=== PATIENT | female | born 1960 | race African-American/Black ===

== ENCOUNTER → 2019-02-10 | Outpatient (CLI) | payer SELFPAY ==
[2015-02-24 15:36] VITALS: BP 183/74
[~2019-02-10] MED LIST: LISI1TAB3 PO; METF500T16 PO
--- NOTE | 2019-02-10 18:03 | RAD ---
EXAM: Chest, 2 views. HISTORY: Short of breath. COMPARISON: None. FINDINGS: 2 views of the chest are obtained. There is lateral left upper lobe atelectasis or interstitial infiltrate. There is no consolidation, pleural effusion or pneumothorax. The heart is normal in size. IMPRESSION: Lateral left upper lobe atelectasis or interstitial infiltrate. Electronically signed by: Meghan Anthony MD (02/10/2019 6:00 PM) [facility]
== END | disposition home or self-care (01) ==
LOC: RAD 17:06
PROVIDERS: ATTEND Physician Assistant Surgical
DX: R06.02 Shortness of breath (principal)
CPT/HCPCS: 71046

== ENCOUNTER → 2019-04-10 | Outpatient (CLI) | payer BC ==
[2015-02-24 15:36] VITALS: BP 183/74
--- NOTE | 2019-04-10 17:19 | KCIC ---
MRI Cervical Spine Without Contrast History: Neck pain, pain into the spine, previous head injury, shoulder pain bilaterally Technique: Multiplanar, multi sequential noncontrast MR imaging was performed of the cervical spine. Comparison: None Findings: Cervical cord caliber is within normal limits without defined or expansile signal abnormality. There is mild levoscoliosis. Cervical vertebral body stature is overall maintained. There is straightening of the cervical spine. There is negligible posterior subluxation C6 relative to C7. There is moderate degenerative disc disease C6-7, to a somewhat lesser degree at C5-6 and C4-5, also minimally at C3-C4. There is no significant marrow edema. C2-C3: Spinal canal and neural foramina are adequate. C3-C4: There is disc osteophyte complex and bulge. Central canal is borderline about 10 mm. There is right uncovertebral degenerative change. Left neural foramen is adequate, moderate to severe narrowing of the right neural foramen. C4-C5: There is negligible bulge. Central canal is adequate about 11 mm. There is uncovertebral degenerative change. There is mild to moderate left and moderate to severe right neural foramina compromise. C5-C6: Left neural foramen is adequate. There is right uncovertebral degenerative change, contributes to moderate narrowing of the right neural foramen. There is negligible disc osteophyte complex, central canal adequate about 11 mm. C6-C7: There is minimal disc osteophyte complex and bulge. There is minimal buckling of the ligamentum flavum. Central canal is minimally narrowed to about 9 mm. There is uncovertebral degenerative change bilaterally. There is severe neural foramina compromise bilaterally. C7-T1: There is negligible bulge. Central canal is adequate about 11 mm. There is mild right uncovertebral degenerative change. There is probable minimal narrowing of the right neural foramen, left neural foramen likely adequate. Impression: 1. There is multilevel neural foramina compromise in part from uncovertebral degenerative change, more significant narrowing bilaterally at C6-7 and on the right at C4-C5 and C3-4. There is mild spinal stenosis C6-7. There is moderate degenerative disc disease and mild spondylosis greatest at C6-7, to a lesser degree at other levels. There is mild levoscoliosis. Electronically signed by: Keshav Croft MD (04/10/2019 5:16 PM) [facility]
== END | disposition home or self-care (01) ==
LOC: KCIC MRI 15:14
PROVIDERS: ATTEND Physician Assistant Surgical
DX: M47.812 Spondylosis without myelopathy or radiculopathy, cervical region (principal); M50.21 Other cervical disc displacement, high cervical region; M50.323 Other cervical disc degeneration at C6-C7 level; M48.02 Spinal stenosis, cervical region; M25.78 Osteophyte, vertebrae
CPT/HCPCS: 72141

== ENCOUNTER → 2019-08-26 | Outpatient (CLI) | payer BC ==
[2015-02-24 15:36] VITALS: BP 183/74
[~2019-08-26] MED LIST changes: +ALBU0.63 NEB; +FURO-69 PO; +HYDR-2763 PO; +LIDO700A21 TP; +LISI1TAB23 PO; -LISI1TAB3 PO; +MELO7.5T29 PO; +NAPR-683 PO
--- NOTE | 2019-08-26 17:11 | PAIN ---
DATE OF SERVICE: 08/26/2019 INITIAL CONSULTATION FOR PAIN CLINIC CHIEF COMPLAINT: Neck and bilateral shoulder and upper extremity pain. SECONDARY COMPLAINT: Low back and bilateral lower extremity pain, left greater than right. HISTORY OF PRESENT ILLNESS: This is a 59-year-old female who presents with history of pain in the low back, right and left legs, right and left arms, started about 4 years ago by her report. She had no pain prior to a box, which fell on her at a local store from a very high area on a shelf, hit her in the head. She has had pain in the neck and shoulders, upper back, mid back and low back ever since. The patient reports the pain is now constant in the base of the neck and shoulders, upper extremities, radiating bilaterally, worse on the left than the right, also worse in the left than the right in the lower extremities and low back, but her chief complaint is low back pain. The patient reports it is constant, sharp, stabbing, throbbing, shooting with numbness and radiating pain in the upper extremities and lower extremity tingling, intermittent in intensity, but always present, cramping, aching and cold sensation in the neck and the back as well. The patient reports it awakens her from sleep at least 3-4 times at night, affects her bowel and bladder control, but no incontinence and does make it difficult for her walking. She uses a cane at times to ambulate using in her right hand, but did not have with her today. The patient reports she has had physical therapy ever since the injury and most recently this year, which helps to a moderate extent and doing some core strengthening with her, which seemed to help, also doing exercises on her own. She does have a [employer] membership, which she has not used recently. The patient reports she has taken hydrocodone, lidocaine patches, meloxicam, none of which decreased the pain significantly. The patient rates her disability rating from 0-10, 10 being the worst, 10 with family and home responsibilities, recreation, social activity, sexual behavior, 9-10 with occupation, self-care and life support activities. The patient did have MRI scan of the cervical spine showing multilevel neural foraminal compromise from uncovertebral degenerative change, most significantly narrowing bilaterally at C6-C7 on the right and C4-C5 and C3-C4 with mild spinal stenosis at C6-C7. The patient also had plain film x-rays taken of the lumbar spine showing significant space narrowing at the L4-L5 and L5-S1 levels with mild disk space narrowing, extensive degenerative changes involving the facet joints of the lower lumbar spine with slight associated anterolisthesis at L4-L5 and L5-S1. The patient reports no loss of motor function, but significant fatigability in both the upper extremities as well as lower extremities with any activity, walking, standing, better with sitting or lying down, but again awakens her from sleep significantly and frequently. PAST MEDICAL HISTORY: Significant for type 2 diabetes, anemia, shortness of breath, hypertension, asthma, urinary frequency, arthritis, headaches. PREVIOUS SURGERY: Includes a ventral hernia repair. CURRENT MEDICATIONS: Include hydrocodone, naproxen, meloxicam, lidocaine patches, Lasix, albuterol inhaler, metformin, and lisinopril. ALLERGIES: The patient has no known drug allergies. FAMILY HISTORY: Significant for hypertension and cancer. SOCIAL HISTORY: The patient does not drink alcohol, does not smoke, does not use any illegal, illicit or recreational drugs. She is , lives with her spouse locally, has one child, living at home and lives in [place], [place]. The patient reports she is currently on disability and does have a lawsuit involved with her disability case. REVIEW OF SYSTEMS: The patient's review of systems is positive for those items mentioned in history of present illness. All systems reviewed and otherwise negative. It is complete, full and well documented on the patient's chart. PHYSICAL EXAMINATION: VITAL SIGNS: The patient's blood pressure 156/84, pulse is 69, respirations 18, temperature is 98.1 degrees Fahrenheit, height is 5 feet 5 inches, weight is 348 pounds. GENERAL: The patient is awake, alert, oriented, appropriate, very pleasant demeanor. HEENT: Shows normocephalic, atraumatic. Extraocular movements are intact and symmetrical. Oral cavity, mucous membranes moist and pink. Dentition is intact. NECK: Shows anterior throat supple without palpable lymphadenopathy noted. Swallow reflex symmetrical. CHEST: Shows normal on inspection. Breath sounds clear to auscultation bilaterally. HEART: Shows S1, S2 clear. No murmurs auscultated. ABDOMEN: Soft, nontender, nondistended. No palpable organomegaly is noted. No rebound or guarding demonstrated. BACK: Shows spine grossly in the midline. Slight exaggeration of thoracic kyphosis and minor flattening of lumbar lordotic curvature. Cervical lordotic curvature is intact as well. With palpation, cervical paraspinous muscle shows symmetrical, but tender diffusely throughout the upper, middle and lower distribution of the cervical paraspinous musculature as well as the superior and medial trapezius, both right and left. The patient shows very guarded rotational motion of cervical spine, which is performed past 45 degrees right and left, but very guarded and very slow secondary to pain and anticipated pain. The patient has good extension as well as forward flexion again quite guarded, but full rotation, but only minor pain reported and tightness reported in the base of the neck. The patient's low back shows lumbar paraspinous muscle symmetrical on inspection, with palpation shows some moderate tenderness diffusely throughout the upper, middle and lower distribution of paraspinous musculature, but only diffusely without radiation. The patient shows good rotational motion of the lumbar spine both laterally as well as extension and flexion with mild pain reported with all rotational directions 10 degrees right and left, 10 degrees extension and forward flexion at about 40 degrees, again tender with all without radiation. EXTREMITIES: The patient's upper extremities show deep tendon reflexes 2+ in the biceps, triceps tendons. Motor exam is strong with crop research scientist strength rated at 5/5 bilaterally crop research scientist, bicep and tricep flexion. Peripheral pulses are 2+ radial distribution. No peripheral edema is noted. Shoulder shrug is strong and intact without loss of strength on resistance, but with moderate pain reported more on the left than the right. This is true with abduction of the shoulder to 90 degrees without loss of strength, but with significant pain on resistance bilaterally. The patient's lower extremities show deep tendon reflexes 1+ in patellar and tendo calcaneus tendons and are symmetrical. Peripheral pulses are 1+ posterior tibial, 2+ radial. No peripheral edema is noted in the extremities, upper or lower. Motor exam of the lower extremities shows approximately 4 on a scale of 5, but symmetrical dorsiflexion, extension, quadriceps and hamstring flexion is 3 to 4 on a scale of 5, but symmetrical as well. Significant pain reported in the base of the lumbar spine and sacrum with lifting the leg off of the table. Straight leg raise noted to be positive for reproduction of radicular symptoms bilaterally at about 30 degrees, decreased with knee flexion, but not relieved completely. Nicolasa's and Travis's maneuvers are grossly negative bilaterally. The patient is able to stand, but has difficulty standing from a seated position, uses arms of her chair significantly to support herself when getting up and is unable to stand on her toes as she loses balance very quickly, is walking with a slight shuffling gait, does not appear to favor the right or left lower extremity to a significant amount and not using any assistive devices to ambulate today on her visit. SKIN: Shows warm and dry, good turgor. No edema. No sores, rashes or bruising. IMPRESSION: 1. This is a 59-year-old female with approximately 4-year history of pain in the base of the neck, upper extremities in a radicular fashion, mid back, low back and radicular pain, more on the left than the right, both the upper and lower extremities. 2. Obesity. 3. Type 2 diabetes. 4. Hypertension. 5. Arthritis. PLAN: Options were discussed with the patient including conservative medical management, physical therapies, interventional techniques and she was very adamant against interventional techniques at this time. She would like to continue with her physical therapy exercises. We discussed with her using a pool at the [facility]. She is a member and able to do some water aerobics, highly encouraged this as well as weight loss, which we discussed in some detail as well. Also, we will try Flector patch for the base of the neck and the low back at this time. She has some lidocaine patches, but is wishing some different potentially more effective therapy. Also, the patient will follow up with her chiropractic office for potential traction as well. If not significantly improved with these modalities, we did discuss potential lumbar epidural steroid injection and a cervical epidural steroid injection; however, she would like to wait and do more conservative therapies first. We will have her followup at this time on as needed basis. DINESH HUTTON MD DR: JENNIFER/zhen JOB#: [id number] / [id number] ecc ,
--- NOTE | 2019-09-18 16:07 | PAIN ---
DATE OF SERVICE: 09/18/2019 PROGRESS NOTE FOR PAIN CLINIC DIAGNOSES: 1. Lumbar radiculopathy with lumbar degenerative disk disease. 2. Cervical radiculopathy with cervical degenerative disk disease. HISTORY OF PRESENT ILLNESS: The patient is a 59-year-old female who returns for followup status post previous evaluation and the patient was doing physical therapy as well as water therapy at the [facility] on her own. The patient did have an MRI scan dated 09/02/2019 showing significant findings at L4-L5 with diffuse disk bulge eccentric to the left and slight extrusion of disk material centrally above the level of the disk space with severe left and [id number] right neural foraminal stenosis. The patient reports increasing pain. She did do some traction with her chiropractor, which she reports did help, but it took 4 or 5 treatments to make it any better and still wanted to decrease by about 20%. The patient reports the pain is a 10 on a scale of 10 at its worst over the past week, 8 on average, 8 at its least and is an 8 today. Low back and bilateral lower extremities, worse on the left, posterior gluteus, posterior thigh, lateral thigh, anterior thigh, medial thigh to the ankle and foot. The patient reports it is aching, sharp, dull, tight, shooting, tingling, stabbing, constant, becoming more radiating in the left leg and severe. PHYSICAL EXAMINATION: VITAL SIGNS: The patient's blood pressure is 131/76, pulse 87, respirations 16, temperature 97.8 degrees Fahrenheit, weight is 351 pounds. GENERAL: The patient is awake, alert, oriented, appropriate, very pleasant demeanor. HEENT: Shows normocephalic, atraumatic. Extraocular movements are intact and symmetrical. Oral cavity: Mucous membranes moist and pink. Dentition is intact. NECK: Shows anterior throat supple without palpable lymphadenopathy noted. Swallow reflex symmetrical. CHEST: Shows normal on inspection. Breath sounds are clear bilaterally. HEART: Shows S1, S2 clear. ABDOMEN: Obese, soft, nontender, nondistended. No palpable organomegaly is noted. No rebound or guarding demonstrated. BACK: Shows spine grossly in the midline. Normal-appearing thoracic kyphosis and flattening of lumbar lordotic curvature. Lumbar paraspinous muscle shows symmetrical on inspection, with palpation shows some moderate tenderness diffusely bilaterally, but only diffusely without radiation. The patient has good rotational motion of lumbar spine, both laterally as well as extension and flexion without difficulty. EXTREMITIES: Lower extremities show deep tendon reflexes at 1+ in the patellar and tendo calcaneus tendons. Motor exam is approximately 4 on a scale of 5, but symmetrical with dorsiflexion, extension, quadriceps and hamstring flexion, right and left. Peripheral pulses are 1+ posterior tibia. No peripheral edema is noted. Options were discussed with the patient. The patient's old chart was reviewed as her current medication updated today as well as review of systems updated today. We will proceed with a lumbar epidural steroid injection today with fluoroscopic guidance. Risks were again discussed including, but not limited to bleeding, infection, possibility of epidural hematoma and subsequent neurological compromise, dural puncture, headaches, spinal cord and/or nerve damage, side effects of steroid medication and poor results regarding pain control. The patient understands and wished to proceed. The patient will return to the clinic in approximately 2 weeks for followup. She was counseled on return appointment, activity level and side effects to be aware of. DIAGNOSES: Lumbar radiculopathy with lumbar degenerative disk disease. PROCEDURE: Lumbar epidural steroid injection, translaminar approach at L4-L5 level using C-arm fluoroscopic guidance under sterile prep and drape using local anesthetic. MEDICATION INJECTED: A total of 120 mg Depo-Medrol plus 10 mL of preservative-free normal saline and 2 mL of contrast. CONDITION AT DISCHARGE: Stable. The patient tolerated the procedure well, had no complications. DINESH HUTTON MD DR: JENNIFER/zhen JOB#: [id number] / [id number]
== END | disposition home or self-care (01) ==
LOC: PNCL 14:04
PROVIDERS: ATTEND Anesthesiology
DX: M54.5 Low back pain (principal); I10 Essential (primary) hypertension; E11.9 Type 2 diabetes mellitus without complications; M19.90 Unspecified osteoarthritis, unspecified site; E66.9 Obesity, unspecified; M25.512 Pain in left shoulder; M25.511 Pain in right shoulder
CPT/HCPCS: G0463

== ENCOUNTER → 2019-09-02 | Outpatient (CLI) | payer BC ==
[2015-02-24 15:36] VITALS: BP 183/74
--- NOTE | 2019-09-02 16:51 | KCIC ---
STUDY: MRI of the lumbar spine without contrast INDICATION: Degenerative disc disease. Loss of bladder control. Coccydynia. Chronic low back pain and bilateral extremity pain. No provided history of surgery. COMPARISON: No recent lumbar spine MRI is available for review. TECHNIQUE: Multiplanar MR imaging of the lumbar spine performed without the use of intravenous contrast. FINDINGS: Transitional lumbosacral anatomy is noted. The S1 vertebral body is partially lumbarized and there is a mostly well-formed disc space at S1-S2. The conus medullaris appears to terminate at approximately the upper L2 level. At the T11-T12 level, degenerative changes result in contact and effacement of both the ventral and dorsal aspect of the cord and on the sagittal T2 sequence there appears to be cord signal elevation at this level though this is less well characterized on the sagittal STIR sequence. This region is not imaged on the axial sequences. Exaggeration of lumbar lordosis. Grade 1 anterolisthesis of L4 on L5 and trace anterolisthesis of L3 on L4. Mild/moderate disc space narrowing at L5-S1. Disc desiccation without significant disc space narrowing at L4-L5. Mild disc space narrowing at T11-T12. No acute fracture or aggressive marrow signal abnormality. Symmetric paraspinous musculature fatty infiltration. Partially visualized fatty infiltration of the gluteus maximums. T11-T12: Only evaluated on the sagittal sequences. Diffuse disc bulge appearing eccentric to the right in addition to facet degeneration and a probable component of ligamentum flavum hypertrophy. There is contact and deformity upon both the ventral and dorsal aspect of the cord and the canal appears severely narrowed. As above, possible cord signal elevation at this level. At least moderate right neural foraminal stenosis and more mild neural foraminal encroachment on the left. T12-L1: Patent central canal and neural foramina. L1-L2: Patent central canal and neural foramina. L2-L3: Patent central canal and neural foramina. L3-L4: Grade 1 anterolisthesis with disc uncovering. Mild disc bulge that is eccentric to the left. Advanced facet degeneration as well as ligamentum flavum hypertrophy. Mild to moderate central canal stenosis. Mild to moderate left and mild right neural foraminal stenosis. L4-L5: Grade 1 anterolisthesis with disc uncovering. Diffuse disc bulge eccentric to the left and there is slight extrusion of disc material centrally above the level of the disc space. Advanced facet degeneration with a left-sided facet effusion. Ligamentum flavum hypertrophy. The thecal sac is constricted and the mid sagittal dimension of the canal is mildly narrowed. Left more so than right lateral recess stenosis. Severe left and moderate to severe right neural foraminal stenosis. L5-S1: Advanced facet degeneration. Mild disc bulge as well as endplate osteophytic ridging. The central canal is patent. Moderate bilateral neural foraminal stenosis. IMPRESSION: 1. Please note the presence of transitional lumbosacral anatomy with lumbarization of the S1 vertebral body and a mostly well-formed disc space at S1-S2. 2. Multifactorial degenerative changes which are only partially evaluated at the T11-T12 level. Disc bulge that appears eccentric to the right as well as facet degeneration and presumed ligamentum flavum hypertrophy with contact and deformity of both the ventral and dorsal aspect of the cord and severe central canal stenosis. On the sagittal T2 sequence, potential localized myelomalacia at this level though this could be artifactual given absent visualization of this signal on the sagittal STIR sequence. At least moderate right and mild left neural foraminal stenosis. 3. On a multifactorial basis, mild to moderate central canal stenosis at L3-L4 and mild central canal stenosis at L4-L5. 4. Severe left and moderate to severe right neural foraminal stenosis at L4-L5 as well as left more so than right lateral recess stenosis at this level. Moderate bilateral neural foraminal stenosis at L5-S1. Electronically signed by: CALIN HEATH MD (09/02/2019 4:48 PM) [facility]
== END | disposition home or self-care (01) ==
LOC: KCIC MRI 15:37
PROVIDERS: ATTEND Family Medicine
DX: M43.16 Spondylolisthesis, lumbar region (principal); M47.815 Spondylosis without myelopathy or radiculopathy, thoracolumbar region; M48.07 Spinal stenosis, lumbosacral region; M51.26 Other intervertebral disc displacement, lumbar region; M89.38 Hypertrophy of bone, other site; G89.29 Other chronic pain
CPT/HCPCS: 72148

== ENCOUNTER → 2019-09-14 | Outpatient (CLI) | payer BC ==
[2015-02-24 15:36] VITALS: BP 183/74
--- NOTE | 2019-09-14 19:19 | KCIC ---
Bilateral digital screening mammograms with 3-D tomosynthesis: Reason for examination: Routine screening. Comparison is made to previous study dated 02/23/2015. Bilateral mammograms in CC and oblique projections were obtained with 2-D imaging and 3-D tomosynthesis imaging on a [employer] unit and reviewed on the workstation. Interpretation was made with the benefit of CAD. The skin and nipples show no abnormalities. No abnormal axillary lymph nodes are seen. The breast parenchyma is predominantly fatty. (Breast density: Category A.) There are no dominant masses, suspicious calcifications or architectural distortion. Impression: No evidence of malignancy. Recommend routine screening. BI-RAD Category 1: Negative. "Our facility is accredited by the [employer] Mammography Program." This patient's information has been entered into a reminder system for the patient to be notified with the results of her examination and a target date for the next mammogram. Electronically signed by: Silvia Burgess MD (09/14/2019 7:16 PM) [id number]
== END | disposition home or self-care (01) ==
LOC: KCIC MAMMO 16:08
PROVIDERS: ATTEND Family Medicine
DX: Z12.31 Encounter for screening mammogram for malignant neoplasm of breast (principal)
CPT/HCPCS: 77063; 77067

== ENCOUNTER → 2019-09-18 | Outpatient (CLI) | payer BC ==
[2015-02-24 15:36] VITALS: BP 183/74
[~2019-09-18] MED LIST changes: +IOHEXOL 180 MG/ML 10 ML VIAL. ONE; +methylPREDNISolone ACETATE 40 MG/ML VIAL. ONE; +methylPREDNISolone ACETATE 80 MG/ML VIAL. ONE
== END ==
LOC: PNCL 11:11
PROVIDERS: ATTEND Anesthesiology
DX: M51.16 Intervertebral disc disorders with radiculopathy, lumbar region (principal); M50.10 Cervical disc disorder with radiculopathy, unspecified cervical region
CPT/HCPCS: 62323; J1030; J1040; Q9965

== ENCOUNTER → 2019-10-02 | Outpatient (CLI) | payer BC ==
[2015-02-24 15:36] VITALS: BP 183/74
--- NOTE | 2019-10-02 13:33 | PAIN ---
DATE OF SERVICE: 10/02/2019 PROGRESS NOTE FOR PAIN CLINIC DIAGNOSES: 1. Lumbar radiculopathy with lumbar degenerative disk disease. 2. Cervical radiculopathy with cervical degenerative disk disease. HISTORY OF PRESENT ILLNESS: The patient is a 59-year-old female who returns for followup status post lumbar epidural steroid injection x 1. The patient reports about 50% improvement overall from her baseline. The patient reports she is very happy with her progress thus far. She has been increasing activities around the house, walking greater distances, increased her activity in general and is very pleased. She is sleeping better at night. The patient reports it still awakens her from sleep, but only about every 5 hours, and not like it was more frequently. The patient reports her pain on the last week at its worst is a 6-7 on a scale of 10, average about 6-7 and a low as a 5, and is a 6 today. The patient reports it is unbearable at times, tingling, aching, sharp, tight in the low back itself and into the left greater than right lower extremity. The patient reports no new motor or sensory deficits, no new bowel or bladder incontinence or other complaints. PHYSICAL EXAMINATION: VITAL SIGNS: The patient's blood pressure is 134/78, pulse 84, respirations 16, temperature 98.0 degrees Fahrenheit, height is 5 feet 6 inches, weight is 345 pounds. GENERAL: The patient is awake, alert, oriented, appropriate, very pleasant demeanor. HEENT: Head shows normocephalic, atraumatic. Extraocular movements are intact and symmetrical. Oral cavity shows mucous membranes moist and pink. Dentition is intact. NECK: Shows anterior throat supple without palpable lymphadenopathy noted. Swallow reflex symmetrical. CHEST: Shows normal on inspection. Breath sounds clear bilaterally. HEART: Shows S1, S2 clear. ABDOMEN: Obese, soft, nontender, nondistended. BACK: Shows spine grossly in the midline, slight exaggerated thoracic kyphosis, some minor flattening of lumbar lordotic curvature. Lumbar paraspinous muscle shows symmetrical on inspection, on palpation shows some moderate tenderness diffusely bilaterally going diffusely without significant radiation. The patient has good rotational motion of lumbar spine, both laterally as well as extension and flexion without significant increase in pain. EXTREMITIES: Lower extremities show deep tendon reflexes 1+ in the patellar and tendo-calcaneus tendons. Motor exam is approximately 4 on a scale of 5, but symmetrical with dorsiflexion, extension, quadriceps and hamstring flexion. Peripheral pulses are 1+ bilaterally. No peripheral edema bilaterally. PLAN: Options were discussed with the patient. The patient's old chart was reviewed as her current medication regimen updated. Current review of systems updated today as well. We will proceed with a second lumbar epidural steroid injection today with fluoroscopic guidance. Risks were again discussed including, but not limited to bleeding, infection, possibility of epidural hematoma, subsequent neurological compromise, dural puncture, headaches, spinal cord and/or nerve damage, side effects of steroid medication and poor results regarding pain control. The patient understands and wished to proceed. The patient will return to clinic in approximately 2 weeks for followup, was counseled on return appointment, activity level and side effects to be aware of. DIAGNOSES: Lumbar radiculopathy with lumbar degenerative disk disease. PROCEDURE: Lumbar epidural steroid injection, translaminar approach L4-L5 level using C-arm fluoroscopic guidance under sterile prep and drape using local anesthetic. MEDICATION INJECTED: A total of 120 mg Depo-Medrol plus 10 mL of preservative-free normal saline and 2 mL of contrast. CONDITION AT DISCHARGE: Stable. The patient tolerated procedure well, had no complications. DNIESH HUTTON MD DR: JENNIFER/zhen JOB#: [id number] / [id number]
== END ==
LOC: PNCL 11:26
PROVIDERS: ATTEND Anesthesiology
DX: M51.16 Intervertebral disc disorders with radiculopathy, lumbar region (principal); M50.10 Cervical disc disorder with radiculopathy, unspecified cervical region
CPT/HCPCS: 62323; J1030; J1040; Q9965

== ENCOUNTER → 2019-11-24 | Outpatient (CLI) | payer BC ==
[2015-02-24 15:36] VITALS: BP 183/74
[~2019-11-24] MED LIST changes: -IOHEXOL 180 MG/ML 10 ML VIAL. ONE; -methylPREDNISolone ACETATE 40 MG/ML VIAL. ONE; -methylPREDNISolone ACETATE 80 MG/ML VIAL. ONE
--- NOTE | 2019-11-24 16:09 | KCIC ---
EXAM: Lumbar spine, flexion and extension. HISTORY: Pain. COMPARISON: 03/23/2019 FINDINGS: Lateral neutral, flexion and extension views of the lumbar spine are obtained. There is a transitional lumbosacral segment. This considered L6 for this dictation. Based on this numbering system, there is grade 1 anterolisthesis of and L3 on L4 and L4 on L5. This is not change between flexion and extension. There is disc space narrowing at L4-L5 and L5-L6. There is multilevel facet arthropathy. IMPRESSION: 1. 6 nonrib-bearing vertebral segments. The last segment is considered L6 for this dictation. 2. Degenerative change predominantly at L4 through L6 and grade 1 anterolisthesis of L4 on L5 and L5 on L6. This does not significantly change between flexion and extension. Electronically signed by: Meghan Anthony MD (11/24/2019 4:06 PM) [facility] [place]
== END | disposition home or self-care (01) ==
LOC: KCIC 14:50
PROVIDERS: ATTEND Neurological Surgery
DX: M47.816 Spondylosis without myelopathy or radiculopathy, lumbar region (principal); M43.16 Spondylolisthesis, lumbar region; M12.88 Other specific arthropathies, not elsewhere classified, other specified site
CPT/HCPCS: 72100

== ENCOUNTER → 2019-12-02 | Outpatient (CLI) | payer BC ==
[2015-02-24 15:36] VITALS: BP 183/74
[~2019-12-02] MED LIST changes: +IOHEXOL 240 MG/ML 50ML VIAL. PO ONE; +IOHEXOL 300 MG/ML 100ML VIAL. IV ONE; +diphenhydrAMINE HCL 25 MG CAPSULE PO ONE
--- NOTE | 2019-12-02 15:48 | KCIC ---
CT ABD PELV W/ORAL IV CONTRAST Indication: Abdominal and pelvic pain Technique: Postcontrast CT imaging was performed of the abdomen and pelvis, multiplanar reconstruction images submitted. Oral contrast was also given. One or more of the following individualized dose reduction techniques were utilized for this examination: 1. Automated exposure control 2. Adjustment of the mA and/or kV according to patient size 3. Use of iterative reconstruction technique. Comparison: None Findings: After exam conclusion, patient reported skin itching as well as scratchy sensation in throat. Patient was given 50 mg Benadryl orally although subsequent vomiting. Patient reported symptoms had resolved, patient discharged to home. Mild linear density of the visualized lungs bilaterally is probably component of atelectasis, lungs not fully evaluated. Both kidneys enhance, no significant hydronephrosis. There is no adrenal nodularity. No focal abnormality is identified of the liver, spleen, or pancreas. Normal appendix is visualized. Bowel is not significantly dilated. There is no free fluid or free air. No significant inflammatory type change is identified about the bowel. There is apparently transitional anatomy of the lumbar spine. There is grade 1 anterior spondylolisthesis at what is considered L4-5, also vacuum disc disease at this level. There is severe narrowing of the L5-S1 intervertebral disc space. There is multilevel lumbar facet degenerative change contributing to multilevel variable lateral recess stenosis. There is likely more significant spinal stenosis at L4-5. There is multilevel lumbar neural foramina compromise, more significant narrowing right greater than left at L4-5 and left greater than right at L5-S1. There is osteoarthritic change of the hips bilaterally. There is also multilevel thoracic degenerative disc disease and facet degenerative change, variable neural foramina compromise. There is also likely degree of spinal stenosis greatest at T9-T10 and right lateral recess stenosis at T11-12. IMPRESSION: 1. Patient exhibited symptoms of allergy after injection of contrast, treated with oral Benadryl. Patient should be premedicated prior to future contemplation of intravenous contrast administration. 2. There is no significant inflammatory change, no CT evidence of acute appendicitis. 3. There is multilevel lumbar degenerative disc disease and facet degenerative change. There is multilevel lateral recess stenosis and also likely more significant spinal stenosis at L4-5. There is lumbar neural foramina compromise greatest at L4-5 and L5-S1. There is also thoracic degenerative disc disease and facet degenerative change as well as spinal stenosis. Electronically signed by: Keshav Croft MD (12/02/2019 3:45 PM) [facility]
== END ==
LOC: KCIC CT 12:27
PROVIDERS: ATTEND Internal Medicine Gastroenterology
DX: M51.35 Other intervertebral disc degeneration, thoracolumbar region (principal); J98.4 Other disorders of lung; M43.16 Spondylolisthesis, lumbar region; M16.0 Bilateral primary osteoarthritis of hip; M48.05 Spinal stenosis, thoracolumbar region
CPT/HCPCS: 74177; 82565; Q9966; Q9967; Q0163

== ENCOUNTER → 2019-12-14 | Outpatient (CLI) | payer BC ==
[2015-02-24 15:36] VITALS: BP 183/74
[~2019-12-14] MED LIST changes: +IOHEXOL 180 MG/ML 10 ML VIAL. ONE; -IOHEXOL 240 MG/ML 50ML VIAL. PO ONE; -IOHEXOL 300 MG/ML 100ML VIAL. IV ONE; -diphenhydrAMINE HCL 25 MG CAPSULE PO ONE; +methylPREDNISolone ACETATE 40 MG/ML VIAL. ONE; +methylPREDNISolone ACETATE 80 MG/ML VIAL. ONE
--- NOTE | 2019-12-14 15:34 | PAIN ---
DATE OF SERVICE: 12/14/2019 PROGRESS NOTE FOR PAIN CLINIC DIAGNOSES: 1. Lumbar radiculopathy with lumbar degenerative disk disease. 2. Cervical radiculopathy with cervical degenerative disk disease. HISTORY OF PRESENT ILLNESS: The patient is a 59-year-old female who returns for followup status post lumbar epidural steroid injection x 2, most recently seen 10/02/2019. The patient did very well with about 80% improvement in her low back and left lower extremity pain. The patient reports pain is returning now over the past few weeks, worse in the low back bilaterally in the posterior gluteus, posterior thighs, lateral thighs as well, but mostly in the posterior aspect. The patient reports it is worse with walking, standing, changing positions, better with sitting or lying down, awakens her from sleep about every 6 hours, but not every night. The patient reports she was doing much better initially distance walking, doing work activities, household activities with greater ease and comfort. The patient reports now the pain is returning, rates her pain over the past week as an 8 on a scale of 10 at its worst, 5 at its least and 7 on average and is a 7 today. The patient reports it is sharp and shooting, stabbing, radiating, becoming more unbearable and more severe with activity. The patient reports no new motor or sensory deficits, no new bowel or bladder incontinence or other complaints. PHYSICAL EXAMINATION: VITAL SIGNS: The patient's blood pressure 133/75, pulse 98, respirations 18, temperature 97.9 degrees Fahrenheit, height is 5 feet 6 inches, weight is 356 pounds. GENERAL: The patient is awake, alert, oriented, appropriate, very pleasant demeanor. HEENT: Head shows normocephalic, atraumatic. Extraocular movements are intact and symmetrical. Oral cavity: Mucous membranes are moist and pink. Dentition is intact. NECK: Shows anterior throat supple without palpable lymphadenopathy noted. Swallow reflex symmetrical. CHEST: Shows normal on inspection. Breath sounds are clear bilaterally. HEART: Shows S1, S2 clear. No murmurs auscultated. ABDOMEN: Soft, nontender, nondistended. No palpable organomegaly is noted. No rebound or guarding demonstrated. BACK: Shows spine grossly in the midline. Normal-appearing thoracic kyphosis, minor flattening of lumbar lordotic curvature. Lumbar paraspinous muscle shows symmetrical on inspection, on palpation shows some moderate tenderness diffusely bilaterally but only diffusely without significant radiation. EXTREMITIES: The patient's lower extremities show deep tendon reflexes at 1+ in the patellar and tendo calcaneus tendons. Motor exam is strong with approximately 4 on a scale of 5, but symmetrical and equal in dorsiflexion, extension, quadriceps and hamstring flexion. Peripheral pulses are 1+ posterior tibia. No peripheral edema is noted bilaterally. Options were discussed with the patient. The patient's old chart was reviewed as her current medication regimen updated. Current review of systems updated today as well. We will proceed with a third in the series of lumbar epidural steroid injection today with fluoroscopic guidance. Risks were again discussed including, but not limited to bleeding, infection, possibility of epidural hematoma, subsequent neurological compromise, dural puncture, headaches, spinal cord and/or nerve damage, side effects of steroid medication and poor results regarding pain control. The patient understands and wished to proceed. The patient will return to the clinic in approximately 2 weeks for followup. She was counseled on return appointment, activity level and side effects to be aware of. DIAGNOSIS: Lumbar radiculopathy with lumbar degenerative disk disease. PROCEDURE: Lumbar epidural steroid injection, translaminar approach at L4-L5 level using C-arm fluoroscopic guidance under sterile prep and drape using local anesthetic. MEDICATION INJECTED: A total of 120 mg Depo-Medrol plus 10 mL of preservative-free normal saline and 2 mL of contrast. CONDITION AT DISCHARGE: Stable. The patient tolerated procedure well, had no complications. DINESH HUTTON MD DR: JENNIFER/zhen JOB#: [id number] / [id number]
== END ==
LOC: PNCL 13:00
PROVIDERS: ATTEND Anesthesiology
DX: M51.16 Intervertebral disc disorders with radiculopathy, lumbar region (principal); M50.10 Cervical disc disorder with radiculopathy, unspecified cervical region
CPT/HCPCS: 62323; J1030; J1040; Q9965

== ENCOUNTER → 2019-12-22 | Outpatient (CLI) | payer BC ==
[2015-02-24 15:36] VITALS: BP 183/74
[~2019-12-22] MED LIST changes: -IOHEXOL 180 MG/ML 10 ML VIAL. ONE; -methylPREDNISolone ACETATE 40 MG/ML VIAL. ONE; -methylPREDNISolone ACETATE 80 MG/ML VIAL. ONE
--- NOTE | 2019-12-22 14:36 | KCIC ---
MRI thoracic spine without contrast HISTORY: Thoracic stenosis. FINDINGS: Sagittal localizer sequence demonstrates cervical disc bulges with probable spinal canal stenoses at least from C3-C4 through C6-C7. There is gradual thoracolumbar scoliosis. Thoracic vertebral body height and alignment intact. No thoracic vertebral bone marrow edema. Thoracic disc desiccation and disc height loss typical of degeneration. No signal abnormality or syrinx of the thoracic spinal cord. Paraspinal tissues are unremarkable. There are mild scattered shallow thoracic disc bulges buckling the ventral dural sac throughout the thoracic spine without significant spinal canal stenosis evident. Multilevel facet spurring contributing to foraminal stenoses to a [id number] degree. At T11-T12 there is a moderate disc bulge, with bulky facet spurs contributing to severe spinal canal, severe right lateral recess stenosis and moderate left lateral recess stenosis, midline dural sac diameter is 5 mm, there may be light impingement of the lower thoracic spinal cord, there is probable impingement of the right T12 nerve at the lateral recess. There is indistinct signal across the thoracic spinal cord at this level of impingement although this is similar to other levels throughout the thoracic spine and is likely due to Julio artifact. IMPRESSION: Thoracic spine degenerative disc disease and facet arthritis. This is most notable at T11-T12 with a moderate disc bulge and bulky facet spurring contributing to severe spinal canal and right lateral recess stenosis as described above. Electronically signed by: Silvino Cornelius MD (12/22/2019 2:32 PM) [id number]
== END | disposition home or self-care (01) ==
LOC: KCIC MRI 13:10
PROVIDERS: ATTEND Neurological Surgery
DX: M51.34 Other intervertebral disc degeneration, thoracic region (principal); M41.85 Other forms of scoliosis, thoracolumbar region; M46.84 Other specified inflammatory spondylopathies, thoracic region; M48.04 Spinal stenosis, thoracic region
CPT/HCPCS: 72146

== ENCOUNTER → 2020-02-19 | Outpatient (CLI) | payer BC ==
[2015-02-24 15:36] VITALS: BP 183/74
--- NOTE | 2020-02-19 09:56 | PAIN ---
DATE OF SERVICE: 02/19/2020 PROGRESS NOTE FOR PAIN CLINIC DIAGNOSES: 1. Lumbar radiculopathy with lumbar degenerative disk disease. 2. Cervical radiculopathy with cervical degenerative disk disease. HISTORY OF PRESENT ILLNESS: The patient is a 59-year-old female who returns for followup status post lumbar epidural steroid injections x 3, most recently on 12/14/2019. Patient did very well with about 65% improvement in the low back, bilateral lower extremity pain. The patient reports her left leg is still more significantly painful than the right, worse with walking, standing, changing positions, better with sitting or lying down, but it has been awakening her from sleep over the past week or so. The patient reports before that she was doing much better with increased walking distances, able to do household activities with greater ease and comfort, traveling with greater ease and sleeping better, but again this is beginning to return in the low back, bilateral lower extremities, posterior gluteus, posterolateral thigh, lateral anterior thigh on the left, especially in the medial thigh, and some in the groin as well on the left side, also on the right side, but not as severe. The patient reports it is aching, sharp, shooting, tingling, stabbing pain, radiating, becoming constant, severe at times with activity. The patient rates her pain as a 9 on a scale of 10 at its worst over the past week, 7 on average, 7 at its least and is a 7 today. PHYSICAL EXAMINATION: VITAL SIGNS: The patient's blood pressure is 154/92, pulse 67, respirations 20, temperature 98.7 degrees Fahrenheit, weight is 356 pounds. GENERAL: The patient is awake, alert, oriented, appropriate, very pleasant demeanor. HEENT: Exam shows normocephalic, atraumatic. Extraocular movements are intact and symmetrical. Oral cavity shows mucous membranes moist and pink. Dentition is intact. NECK: Shows anterior throat supple without palpable lymphadenopathy noted. Swallow reflex symmetrical. CHEST: Shows normal on inspection. Breath sounds are clear bilaterally. HEART: Shows S1, S2 clear. No murmurs auscultated. ABDOMEN: Soft, nontender, nondistended. No palpable organomegaly is noted. No rebound or guarding demonstrated. BACK: Shows spine grossly in the midline. Normal appearing thoracic kyphosis and minor flattening of lumbar lordotic curvature. Lumbar paraspinous muscle shows symmetrical on inspection, on palpation shows some moderate tenderness diffusely bilaterally with palpation in the low lumbar distribution only, but without specific radiation. The patient has good rotational motion both laterally as well as extension and flexion without significant increase in pain just mildly increased. EXTREMITIES: The patient's lower extremities show deep tendon reflexes 1+ in the patellar and tendo calcaneus tendons. Motor exam is approximately 4 on a scale of 5, but equal and symmetrical with dorsiflexion, extension, quadriceps and hamstring flexion and symmetrical. Peripheral pulses are 1+ posterior tibia. No peripheral edema bilaterally. Options were discussed with the patient. The patient's old chart was reviewed as her current medication regimen updated. Current review of systems updated today as well and we will proceed with scheduling a followup for lumbar epidural steroid injection. It has not been quite 6 months and by her insurance restrictions it must be 6 months from the first injection prior to eligibility for any additional. We will try Medrol Dosepak in the meantime. The patient was given instruction as well as side effects to be aware of with the medication and will follow up in approximately 3 weeks and we will plan on lumbar epidural steroid injection at that time. DINESH HUTTON MD DR: JENNIFER/zhen JOB#: [id number] / [id number]
== END | disposition home or self-care (01) ==
LOC: PNCL 09:08
PROVIDERS: ATTEND Anesthesiology
DX: M51.16 Intervertebral disc disorders with radiculopathy, lumbar region (principal); M50.10 Cervical disc disorder with radiculopathy, unspecified cervical region
CPT/HCPCS: G0463-25

== ENCOUNTER → 2020-03-21 | Outpatient (CLI) | payer BC ==
[2015-02-24 15:36] VITALS: BP 183/74
[~2020-03-21] MED LIST changes: +IOHEXOL 180 MG/ML 10 ML VIAL. ONE; +methylPREDNISolone ACETATE 40 MG/ML VIAL. ONE; +methylPREDNISolone ACETATE 80 MG/ML VIAL. ONE
--- NOTE | 2020-03-21 10:24 | PAIN ---
DATE OF SERVICE: 03/21/2020 PROGRESS NOTE FOR PAIN CLINIC DIAGNOSES: 1. Lumbar radiculopathy with lumbar degenerative disk disease. 2. Cervical radiculopathy with cervical degenerative disk disease. HISTORY OF PRESENT ILLNESS: The patient is a 59-year-old female who returns for followup status post lumbar epidural steroid injections, most recently on 12/14/2019. The patient had done very well with about 65% improvement in her low back and left lower extremity. The patient reports the pain is returning in her left hip. We tried Medrol Dosepak on her last visit as it was early for her insurance to approve another injection, she said that helped temporarily but only for a few days. The patient reports the pain is increasing in the low back, left lower extremity with tingling, stabbing, sharp, radiating, unbearable at times with walking, standing, changing positions. The patient reports it is a 9 on a scale of 10 at all times, average, worst and least and is tingling and stabbing in the low back with a sharp pain in the left hip radiating to the left lower extremity, posterior gluteus, lateral thigh, anterior thigh, medial thigh, unbearable at times. The patient reports no new motor or sensory deficits, awakens her from sleep, but only about once every 4 hours, and not every night. The patient reports no new changes, no new bowel or bladder incontinence or other complaints. PHYSICAL EXAMINATION: VITAL SIGNS: The patient's blood pressure 155/84, pulse 73, respirations 18, temperature 98.5 degrees Fahrenheit, height is 5 feet 6 inches, weight is 358 pounds. GENERAL: The patient is awake, alert, oriented, appropriate, very pleasant demeanor. HEENT: Shows normocephalic, atraumatic. Extraocular movements are intact and symmetrical. Oral cavity shows mucous membranes moist and pink. Dentition is intact. NECK: Shows anterior throat supple without palpable lymphadenopathy noted. Swallow reflex symmetrical. CHEST: Shows normal on inspection. Breath sounds are clear. No rales, rhonchi or wheezes auscultated. HEART: Shows S1, S2 clear. No murmurs auscultated. ABDOMEN: Obese, soft, nontender, nondistended. No palpable organomegaly is noted. No rebound or guarding demonstrated. BACK: Shows spine grossly in the midline. Normal appearing thoracic kyphosis and minor flattening of lumbar lordotic curvature. Lumbar paraspinous muscle shows symmetrical on inspection, on palpation shows some moderate tenderness diffusely bilaterally, but only diffusely without significant radiation. The patient has good rotational motion of lumbar spine, both laterally as well as extension and flexion without significant increase in pain. EXTREMITIES: Lower extremities show deep tendon reflexes 1+ in the patellar and tendo calcaneus tendons are equal. Motor exam is approximately 4 on a scale of 5, but symmetrical with dorsiflexion, extension, quadriceps and hamstring flexion and equal bilaterally. Peripheral pulses are 1+. No peripheral edema is noted. Options were discussed with the patient. The patient's old chart was reviewed as was her current medication regimen updated. Current review of systems updated today as well. We will proceed with a lumbar epidural steroid injection today as a first in this series with fluoroscopic guidance. Risks were again discussed including, but not limited to bleeding, infection, possibility of epidural hematoma, subsequent neurological compromise, dural puncture, headaches, spinal cord and/or nerve damage, side effects of steroid medication and poor results regarding pain control. The patient understands and wished to proceed. The patient will return to clinic in approximately 2 weeks for followup. She was counseled on return appointment, activity level and side effects to be aware of. DIAGNOSIS: Lumbar radiculopathy with lumbar degenerative disk disease. PROCEDURE: Lumbar epidural steroid injection, translaminar approach L4-L5 level using C-arm fluoroscopic guidance under sterile prep and drape using local anesthetic. MEDICATION INJECTED: A total of 120 mg Depo-Medrol plus 10 mL preservative-free normal saline and 2 mL of contrast. CONDITION AT DISCHARGE: Stable. The patient tolerated procedure well, had no complications. DINESH HUTTON MD DR: JENNIFER/zhen JOB#: [id number] / [id number]
== END ==
LOC: PNCL 08:55
PROVIDERS: ATTEND Anesthesiology
DX: M51.16 Intervertebral disc disorders with radiculopathy, lumbar region (principal); M50.10 Cervical disc disorder with radiculopathy, unspecified cervical region
CPT/HCPCS: 62323; J1030; J1040; Q9965

== ENCOUNTER → 2020-04-26 | Outpatient (CLI) | payer BC ==
[2015-02-24 15:36] VITALS: BP 183/74
--- NOTE | 2020-04-26 10:44 | PAIN ---
DATE OF SERVICE: 04/26/2020 PROGRESS NOTE FOR PAIN CLINIC DIAGNOSES: 1. Lumbar radiculopathy with lumbar degenerative disk disease. 2. Cervical radiculopathy with cervical degenerative disk disease. HISTORY OF PRESENT ILLNESS: The patient is a 59-year-old female who returns for followup status post lumbar epidural steroid injection x 1. The patient reports about 45% improvement in her low back and left lower extremity. The patient reports it is much better, but still some pain with walking, standing, changing positions, does not awaken her from sleep at night; however, she is sleeping better and feels better with sitting or lying down. The patient rates her pain as a 5 on a scale of 10 at all times in the last week average, worst and least and is a 5 today. The patient reported it is aching, tingling at times in the low back and left leg. The patient reports no new motor or sensory deficits, no new bowel or bladder incontinence or other complaints. PHYSICAL EXAMINATION: VITAL SIGNS: The patient's blood pressure 136/74, pulse 62, respirations 18, temperature 98.9 degrees Fahrenheit, height is 5 feet 6 inches, weight is 361 pounds. GENERAL: The patient is awake, alert, oriented, appropriate, very pleasant demeanor. HEENT: Shows normocephalic, atraumatic. Extraocular movements are intact and symmetrical. Oral cavity: Mucous membranes moist and pink. Dentition is intact. NECK: Shows anterior throat supple without palpable lymphadenopathy noted. Swallow reflex symmetrical. CHEST: Shows normal on inspection. Breath sounds clear bilaterally. No rales, rhonchi or wheezes auscultated. ABDOMEN: Obese, soft, nontender, nondistended. BACK: Shows spine grossly in the midline. Normal appearing thoracic kyphosis and lumbar lordotic curvature slightly flattened. Lumbar paraspinous muscle shows symmetrical on inspection, on palpation shows some moderate tenderness diffusely bilaterally going diffusely without significant radiation. The patient has good rotational motion of lumbar spine, both laterally as well as extension and flexion without significant pain reported. EXTREMITIES: Lower extremities show deep tendon reflexes at 1+ in the patellar and tendo calcaneus tendons. Motor exam is approximately 4 on a scale of 5, but equal and symmetrical dorsiflexion, extension, quadriceps and hamstring flexion. Peripheral pulses are 1+ in the posterior tibia. No peripheral edema is noted bilaterally. Options were discussed with the patient. The patient's old chart was reviewed as her current medication regimen updated. Current review of systems updated today as well. We will proceed with a second in the series of lumbar epidural steroid injection today with fluoroscopic guidance. Risks were again discussed including, but not limited to bleeding, infection, possibility of epidural hematoma, subsequent neurological compromise, dural puncture, headaches, spinal cord and/or nerve damage, side effects of steroid medication and poor results regarding pain control. The patient understands and wished to proceed. The patient will return to clinic in approximately 2 weeks for followup. She was counseled as to return appointment, activity level and side effects to be aware of. DIAGNOSIS: Lumbar radiculopathy with lumbar degenerative disk disease. PROCEDURE: Lumbar epidural steroid injection, translaminar approach at the L4-L5 level using C-arm fluoroscopic guidance under sterile prep and drape using local anesthetic. MEDICATION INJECTED: A total of 120 mg Depo-Medrol plus 10 mL of preservative-free normal saline and 2 mL of contrast. CONDITION AT DISCHARGE: Stable. The patient tolerated procedure well, had no complications. DINESH HUTTON MD DR: JENNIFER/zhen JOB#: [id number] / [id number]
== END | disposition home or self-care (01) ==
LOC: PNCL 10:01
PROVIDERS: ATTEND Anesthesiology
DX: M51.16 Intervertebral disc disorders with radiculopathy, lumbar region (principal); M50.10 Cervical disc disorder with radiculopathy, unspecified cervical region; Z88.8 Allergy status to other drugs, medicaments and biological substances; Z79.899 Other long term (current) drug therapy
CPT/HCPCS: 62323; J1030; J1040; Q9965

== ENCOUNTER → 2020-06-08 | Outpatient (CLI) | payer BC ==
[2015-02-24 15:36] VITALS: BP 183/74
--- NOTE | 2020-06-08 10:52 | PDOC ---
Progress Note - Pain Clinic Date of Service: DOS: DATE: 06/08/20 TIME: 10:48 Diagnosis: Dx: Lumbar radiculopathy with lumbar degenerative disc disease Cervical radiculopathy with cervical degenerative disc disease History or Present Illness: HPI: 9-year-old female returns follow-up status post lumbar epidural straight injections x2. Patient reports about 75% improvement overall after about 3 weeks after her last injection we had a Medrol Dosepak that she took as well which helped to a moderate extent but patient reports the pain returning on the low back and the right lower extremity as well as the left lower extremity more noticeable on the left side patient reports in the posterior gluteus posterior thigh lateral thigh anterior thigh medial thigh again both sides but worse on the left patient points an 8 on a scale of 10 is worse in the past week 6 on average 6 at its least and is 6 today. Patient scribes pain is aching dull tight tingling stabbing with some numbness as well in the left leg and low back radiating become more constant worse with walking standing changing positions better with sitting or laying down reports it generally not awaken her from sleep at night but over the last week it has occasionally. Patient initially was doing much better with doing work activities household activities and walking greater distances but now the pain is returning. Patient reports no new motor or sensory deficits no new bowel or bladder incontinence Physical Exam: VS: Blood pressure is 132/72 pulse 68 respiration 16 temperature 98.2 F weight is 357 pounds PE: PHYSICAL EXAMINATION: GENERAL: The patient is awake, alert, oriented, appropriate, very pleasant demeanor HEENT: Shows normocephalic, atraumatic. Extraocular movements are intact and symmetrical. Oral cavity: Mucous membranes moist and pink. NECK: Shows anterior throat supple without palpable lymphadenopathy noted. Swallow reflex symmetrical. CHEST: Shows normal on inspection. Breath sounds are clear bilaterally, no rales rhonchi or wheezes auscultated. HEART: Shows S1, S2 clear. No murmurs auscultated. ABDOMEN: Soft, nontender, nondistended, obese. No palpable organomegaly is noted. No rebound or guarding demonstrated. BACK: Shows spine grossly in the midline. Normal-appearing cervical lordotic curvature. There is slightly increased thoracic kyphosis, some minor flattening of the lumbar lordotic curvature. Lumbar paraspinous muscles show symmetrical on inspection, on palpation shows some moderate tenderness diffusely throughout the upper, middle and lower distribution of the paraspinous muscles bilaterally, but without specific trigger points, without radiation of pain. The patient has good rotational motion of the lumbar spine, both laterally as well as extension and flexion without significant difficulty. No tenderness over the spinous processes, sacrum or sacroiliac regions. EXTREMITIES: Lower extremities show deep tendon reflexes 1+ in the patellar and tendo calcaneus tendons. Motor exam is 4 on a scale of 5 with right dorsiflexion, extension, quadriceps and hamstring flexion and 4/5 on the left. Peripheral pulses are 1 posterior tibial. No peripheral edema is noted bilaterally. Lower extremities are warm and dry to touch, equal in color and appearance. SKIN: Shows warm and dry, good turgor. No edema. No sores, rashes or bruising throughout. Procedure: Procedure: Options were discussed with the patient. Patient's old chart was reviewed as her current medication regimen updated current review of systems updated today as well. We will proceed with a third in the series lumbar epidural steroid injection today with fluoroscopic guidance. Risks were again discussed including but not limited to bleeding infection possibility of epidural hematoma subsequent neurological compromise dural puncture headache spinal cord and or nerve damage side effects of steroid medication and portals chronic pain control. Patient understands wished to proceed. Patient return to clinic in possibly 2 weeks for follow-up was counseled as to return appointment activity level and side effects to be aware of. Medication Injected: Med Injected: Procedure is lumbar epidural steroid injection under local anesthetic using sterile prep and drape at the L4-5 level using C-arm fluoroscopic guidance in both AP and lateral views medications injected is 120 mg Depo-Medrol + 10 mL preservative-free normal saline and 2 mL contrast- condition at discharge is stable patient tolerated procedure well had no complications. Condition at Discharge: Condition at Discharge: Condition at discharge stable patient tolerated procedure well had no complications. DINESH HUTTON MD Jun 08, 2020 10:52
== END | disposition home or self-care (01) ==
LOC: PNCL 09:53
PROVIDERS: ATTEND Anesthesiology
DX: M51.16 Intervertebral disc disorders with radiculopathy, lumbar region (principal); M50.10 Cervical disc disorder with radiculopathy, unspecified cervical region; Z88.8 Allergy status to other drugs, medicaments and biological substances; Z79.899 Other long term (current) drug therapy
CPT/HCPCS: 62323; J1030; J1040; Q9965

== ENCOUNTER → 2020-10-06 | Outpatient (CLI) | payer BC ==
[2015-02-24 15:36] VITALS: BP 183/74
[~2020-10-06] MED LIST changes: +DULO20CA PO
--- NOTE | 2020-10-06 10:23 | PDOC ---
Progress Note - Pain Clinic Date of Service: DOS: DATE: 10/06/20 TIME: 10:21 Diagnosis: Dx: Lumbar radiculopathy with lumbar degenerative disease Cervical radiculopathy with cervical degenerative disc disease History or Present Illness: HPI: 60-year-old female returns follow-up status post lumbar epidural straight injection x1. Patient reports about 60% improvement in the low back and bilateral lower extremity pain again worse on the left than the right but present bilaterally patient reports pain is subsiding to a moderate extent after the injection but is beginning to return slightly over the past few days patient reports it is in the low back left lower extremity greater than right posterior gluteus posterior lateral thigh lateral anterior thigh anterior medial thighs bilaterally. Patient reports is a 5 on a scale of 10 is worst in the past week for an average for its least is a 4 today patient presents tingling aching burning radiating sometimes shooting pain in the left leg as well. Patient reports is better with sitting or laying down does not awaken her from sleep she been increasing her activity with distance walking standing for longer periods and feels overall a significant improvement. Patient reports no new motor or sensory deficits no new bowel or bladder incontinence or other complaints. Physical Exam: VS: Blood pressure is 140/77 pulse 72 respirations 18 temperature 90.0 F height 5 feet 6 inches weight is 3 6 0 pounds PE: PHYSICAL EXAMINATION: GENERAL: The patient is awake, alert, oriented, appropriate, very pleasant demeanor HEENT: Shows normocephalic, atraumatic. Extraocular movements are intact and symmetrical. NECK: Shows anterior throat supple without palpable lymphadenopathy noted. Swallow reflex symmetrical. CHEST: Shows normal on inspection. Breath sounds are clear bilaterally, no rales or rhonchi. HEART: Shows S1, S2 clear. No murmurs auscultated. ABDOMEN: Soft, nontender, nondistended, obese. No palpable organomegaly is noted. No rebound or guarding demonstrated. BACK: Shows spine grossly in the midline. Normal-appearing cervical lordotic curvature. There is slightly increased thoracic kyphosis, some minor flattening of the lumbar lordotic curvature. Lumbar paraspinous muscles show symmetrical on inspection, on palpation shows some moderate tenderness diffusely throughout the upper, middle and lower distribution of the paraspinous muscles without specific trigger points, without radiation of pain. The patient has good rotational motion of the lumbar spine, both laterally as well as extension and flexion without significant difficulty. No tenderness over the spinous processes, sacrum or sacroiliac regions. EXTREMITIES: Lower extremities show deep tendon reflexes 1+ in the patellar and tendo calcaneus tendons. Motor exam is 4 on a scale of 5 with right dorsiflexion, extension, quadriceps and hamstring flexion and 4/5 on the left. Peripheral pulses are 1+ posterior tibial. No peripheral edema is noted bilaterally. Lower extremities are warm and dry to touch, equal in color and appearance. SKIN: Shows warm and dry, good turgor. No edema. No sores, rashes or bruising throughout. Procedure: Procedure: Options were discussed with the patient. Patient chart reviewed as her current medication regimen updated current review of systems updated today as well. We will proceed with a second in the series lumbar epidural steroid injection today with fluoroscopic guidance. Risks were discussed including but not limited to: Bleeding, infection, possibility of epidural hematoma and subsequent neurological compromise, dural puncture, headaches, spinal cord and/or nerve damage, side effects of steroid medication, and poor results regarding pain control. Patient understands wished to proceed. Patient will return to clinic in approximate 2 weeks for follow-up, was counseled as to return appointment activity level and side effects to be aware of. Medication Injected: Med Injected: Procedure is lumbar epidural steroid injection under local anesthetic using sterile prep and drape at the L4-5 level using C-arm fluoroscopic guidance in both AP and lateral views medications injected is 120 mg Depo-Medrol + 10 mL preservative-free normal saline and 2 mL contrast- condition at discharge is stable patient tolerated procedure well had no complications. Condition at Discharge: Condition at Discharge: Patient discharged stable, patient tolerated procedure well, and had no complications. DINESH HUTTON MD Oct 06, 2020 10:23
== END | disposition home or self-care (01) ==
LOC: PNCL 09:12
PROVIDERS: ATTEND Anesthesiology
DX: M51.16 Intervertebral disc disorders with radiculopathy, lumbar region (principal); M50.10 Cervical disc disorder with radiculopathy, unspecified cervical region; Z79.899 Other long term (current) drug therapy; Z91.041 Radiographic dye allergy status
CPT/HCPCS: 62323; J1030; J1040; Q9965

== ENCOUNTER → 2020-12-14 | Outpatient (CLI) | payer BC ==
[2015-02-24 15:36] VITALS: BP 183/74
--- NOTE | 2020-12-14 11:20 | PDOC ---
Progress Note - Pain Clinic Date of Service: DOS: DATE: 12/14/20 TIME: 11:16 Diagnosis: Dx: Lumbar radiculopathy with lumbar degenerative disc disease Cervical radiculopathy with cervical degenerative disc disease History or Present Illness: HPI: 60-year-old female returns for follow-up status post lumbar epidural steroid injection x2. Patient last seen October 06, 2020. Patient reports she did very well with about 75% improvement initially pain is began to return now is only about 45% improvement currently in the low back and left lower extremity pain. Patient reports getting worse with walking standing changing positions better with sitting or laying down rates pain is an 8 on scale 10 is worse over the past week 7 on average 6 its least is a 7 today. Patient reports it is tight and shooting tingling radiating lower extremities mostly the posterior gluteus lateral thigh anterior thighs bilaterally worse on the left than the right, but present bilaterally. Patient reports no new motor or sensory deficits no new bowel or bladder incontinence. Physical Exam: VS: Blood pressure is 163/86 pulse is 78 respirations 18 temperature is 98.2 F height is 5 feet 6 inches weight is 364 pounds PE: PHYSICAL EXAMINATION: GENERAL: The patient is awake, alert, oriented, appropriate, very pleasant demeanor HEENT: Shows normocephalic, atraumatic. Extraocular movements are intact and symmetrical. Oral cavity: Mucous membranes moist and pink. Dentition is intact. NECK: Shows anterior throat supple without palpable lymphadenopathy noted. Swallow reflex symmetrical. CHEST: Shows normal on inspection. Breath sounds are clear bilaterally, no rales or rhonchi. HEART: Shows S1, S2 clear. No murmurs auscultated. ABDOMEN: Soft, nontender, nondistended, obese. No palpable organomegaly is noted. BACK: Shows spine grossly in the midline. Normal-appearing cervical lordotic curvature. There is slightly increased thoracic kyphosis, some minor flattening of the lumbar lordotic curvature. Lumbar paraspinous muscles show symmetrical on inspection, on palpation shows some moderate tenderness diffusely throughout the upper, middle and lower distribution of the paraspinous muscles without specific trigger points, without radiation of pain. The patient has good rotational motion of the lumbar spine, both laterally as well as extension and flexion without significant difficulty. EXTREMITIES: Lower extremities show deep tendon reflexes 1+ in the patellar and tendo calcaneus tendons. Motor exam is 4 on a scale of 5 with right dorsiflexion, extension, quadriceps and hamstring flexion and 4/5 on the left. Peripheral pulses are 1+ posterior tibial. No peripheral edema is noted bilaterally. Lower extremities are warm and dry to touch, equal in color and appearance. SKIN: Shows warm and dry, good turgor. No edema. No sores, rashes or bruising throughout. Procedure: Procedure: Options discussed with the patient. Patient chart reviews her current medication regimen updated current review of systems updated today as well. We will proceed with a third in the series lumbar epidural steroid ejections today with fluoroscopic guidance. Risks were discussed including but not limited to: Bleeding, infection, possibility of epidural hematoma and subsequent neurological compromise, dural puncture, headaches, spinal cord and/or nerve damage, side effects of steroid medication, and poor results regarding pain control. Patient understands and wished to proceed. She will return to the clinic in approximate 2 weeks for follow-up, was counseled as return appointment activity level and side effects to be aware of. Medication Injected: Med Injected: Procedure is lumbar epidural steroid injection under local anesthetic using sterile prep and drape at the L4-5 level using C-arm fluoroscopic guidance in both AP and lateral views medications injected is an 120 mg Depo-Medrol + 10 mL preservative-free normal saline and 2 mL contrast- condition at discharge is stable patient tolerated procedure well had no complications. Condition at Discharge: Condition at Discharge: Condition at discharge stable, patient alert procedure well and had no complications. DINESH HUTTON MD Dec 14, 2020 11:20
--- NOTE | 2020-12-14 11:20 | PDOC4 ---
PROCEDURE Procedure Patient was consented for lumbar epidural steroid injection. Risks were dis cussed including but not limited to: Bleeding, infection, possibility of epidural hematoma and subsequent neurological compromise, dural puncture, headaches, spinal cord and/or nerve damage, side effects of steroid medication, and poor results regarding pain control. Patient understands and wished to proceed. Procedure is lumbar epidural steroid injection under local anesthetic using sterile prep and drape at the L4-5 level using C-arm fluoroscopic guidance in both AP and lateral views medications injected is 120 mg Depo-Medrol + 10 mL preservative-free normal saline and 2 mL contrast- condition at discharge is stable patient tolerated procedure well had no complications. DINESH HUTTON MD Dec 14, 2020 11:20
== END | disposition home or self-care (01) ==
LOC: PNCL 10:14
PROVIDERS: ATTEND Anesthesiology
DX: M51.16 Intervertebral disc disorders with radiculopathy, lumbar region (principal); M50.10 Cervical disc disorder with radiculopathy, unspecified cervical region; Z79.899 Other long term (current) drug therapy; Z91.041 Radiographic dye allergy status
CPT/HCPCS: 62323; J1030; J1040; Q9965; 77002

== ENCOUNTER → 2021-03-23 | Outpatient (CLI) | payer BC ==
[2015-02-24 15:36] VITALS: BP 183/74
--- NOTE | 2021-03-23 10:17 | PDOC4 ---
PROCEDURE Procedure Patient was consented for lumbar epidural steroid injection. Risks were dis cussed including but not limited to: Bleeding, infection, possibility of epidural hematoma and subsequent neurological compromise, dural puncture, headaches, spinal cord and/or nerve damage, side effects of steroid medication, and poor results regarding pain control. Patient understands and wished to proceed. Procedure is lumbar epidural steroid injection under local anesthetic using sterile prep and drape at the L4-5 level using C-arm fluoroscopic guidance in both AP and lateral views medications injected is 120 mg Depo-Medrol +10mL preservative-free normal saline and 2 mL contrast- condition at discharge is stable patient tolerated procedure well had no complications. DINESH HUTTON MD Mar 23, 2021 10:17
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
== END | disposition home or self-care (01) ==
LOC: PNCL 09:02
PROVIDERS: ATTEND Anesthesiology
DX: M51.16 Intervertebral disc disorders with radiculopathy, lumbar region (principal); M50.10 Cervical disc disorder with radiculopathy, unspecified cervical region; Z79.84 Long term (current) use of oral hypoglycemic drugs; Z79.899 Other long term (current) drug therapy; Z91.041 Radiographic dye allergy status
CPT/HCPCS: 62323; J1030; J1040; Q9965

== ENCOUNTER → 2021-03-29 | Outpatient (CLI) | payer BC ==
[2015-02-24 15:36] VITALS: BP 183/74
[~2021-03-29] MED LIST changes: -IOHEXOL 180 MG/ML 10 ML VIAL. ONE; -methylPREDNISolone ACETATE 40 MG/ML VIAL. ONE; -methylPREDNISolone ACETATE 80 MG/ML VIAL. ONE
--- NOTE | 2021-03-29 14:54 | KCIC ---
EXAM: Pelvis and left hip, 3 views. HISTORY: Pain. COMPARISON: None. FINDINGS: A frontal view of the pelvis and frog-leg view of the left hip are obtained. There is no fr acture, dislocation or subluxation. There is marginal lateral acetabular and femoral head spurring an d degenerative subchondral cyst formation. There is vacuum phenomenon and subchondral scoliosis invol ving the sacroiliac joints. There is a transitional lumbosacral segment with sacralized transverse pr ocesses. This is a normal variant. IMPRESSION: 1. Mild to moderate bilateral hip osteoarthritis. 2. No acute osseous finding. Electronically signed by: Meghan Anthony MD (03/29/2021 2:52 PM) [id number]
--- NOTE | 2021-03-29 16:01 | KCIC ---
EXAM: XR SHOULDER_LEFT 2+ VIEWS 03/29/2021 2:06 PM CLINICAL INDICATION: Left hip and shoulder pain post injury COMPARISON: None TECHNIQUE: 3 views of the left shoulder FINDINGS: No acute fracture. Alignment is normal. There is mild to moderate glenohumeral osteoarthro sis with prominent anterior osteophytes. Moderate acromioclavicular degenerative joint disease with s mall anterior osteophytes. There are mild chronic bony changes at the greater tuberosity. The subacro mial space is preserved. IMPRESSION: No acute osseous abnormality. Mild to moderate glenohumeral and acromioclavicular degene rative joint disease. Electronically signed by: Anabel Porter MD (03/29/2021 3:59 PM) [id number]
== END | disposition home or self-care (01) ==
LOC: KCIC 14:01
PROVIDERS: ATTEND Anesthesiology
DX: M25.512 Pain in left shoulder (principal); M25.552 Pain in left hip; M19.012 Primary osteoarthritis, left shoulder; M16.0 Bilateral primary osteoarthritis of hip; Z91.041 Radiographic dye allergy status; Z79.899 Other long term (current) drug therapy
CPT/HCPCS: 73030; 73501

== ENCOUNTER → 2021-04-12 | Outpatient (CLI) | payer BC ==
[2015-02-24 15:36] VITALS: BP 183/74
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
== END | disposition home or self-care (01) ==
LOC: PNCL 09:44
PROVIDERS: ATTEND Anesthesiology
DX: M51.16 Intervertebral disc disorders with radiculopathy, lumbar region (principal); M50.10 Cervical disc disorder with radiculopathy, unspecified cervical region; M19.012 Primary osteoarthritis, left shoulder; M19.011 Primary osteoarthritis, right shoulder; M16.12 Unilateral primary osteoarthritis, left hip; Z79.899 Other long term (current) drug therapy; Z91.041 Radiographic dye allergy status
CPT/HCPCS: 99212; G0463

== ENCOUNTER → 2021-05-30 | Outpatient (CLI) | payer BC ==
[2015-02-24 15:36] VITALS: BP 183/74
[~2021-05-30] MED LIST changes: +IOHEXOL 180 MG/ML 10 ML VIAL. ONE; +methylPREDNISolone ACETATE 80 MG/ML VIAL. ONE
--- NOTE | 2021-05-30 09:35 | PDOC ---
Progress Note - Pain Clinic Date of Service: DOS: DATE: 05/30/21 TIME: 09:32 Diagnosis: Dx: Lumbar radiculopathy with lumbar degenerative disc disease Cervical radiculopathy with cervical degenerative disease Bilateral shoulder joint pain with osteoarthritis History or Present Illness: HPI: 60-year-old female returns for follow-up status post lumbar epidural steroid injection March 23, 2021. Patient did very well with this with about 60% improvement patient reports pain is returning on the low back and mainly in the right lower extremity but present bilaterally posterior gluteus posterior thigh posterior calf on the right side worse with walking and standing better with sitting or laying down patient reports is worse and has new findings of fatigue in the right leg where she is having some weakness which she do not have previously patient reports is an 8 on scale 10 is worse over the past week 7 on average 6 its least is a 6 today patient scribes aching sharp dull tingling stabbing radiating can be constant and becoming more fatigued and more weak on the right leg she has felt very unstable with walking she is stumbling using a cane which she has with her today. Patient reports better with laying down does not awaken her from sleep at night most nights no bowel or bladder incontinence. Physical Exam: VS: Blood pressure is 143/81 pulse 80 respirations 18 temperature 98.1 F height is 5 feet 6 inches weight is 353 pounds. PE: PHYSICAL EXAMINATION: GENERAL: The patient is awake, alert, oriented, appropriate, very pleasant in demeanor HEENT: Shows normocephalic, atraumatic. Extraocular movements are intact and symmetrical. Oral cavity: Mucous membranes moist and pink. NECK: Shows anterior throat supple without palpable lymphadenopathy noted. Swallow reflex symmetrical. CHEST: Shows normal on inspection. Breath sounds are clear bilaterally, no ra les or rhonchi. HEART: Shows S1, S2 clear. No murmurs auscultated. ABDOMEN: Soft, nontender, nondistended, obese. No palpable organomegaly is noted. BACK: Shows spine grossly in the midline. Normal-appearing cervical lordotic curvature. There is increased thoracic kyphosis, some flattening of the lumbar lordotic curvature. Lumbar paraspinous muscles show symmetrical on inspection, on palpation shows some moderate tenderness diffusely throughout the upper, middle and lower distribution of the paraspinous muscles without specific trigger points, without radiation of pain. The patient has good rotational motion of the lumbar spine, both laterally as well as extension and flexion without significant difficulty. No tenderness over the spinous processes, sa stan or sacroiliac regions. EXTREMITIES: Lower extremities show deep tendon reflexes 1+ in the patellar and tendo calcaneus tendons. Motor exam is 4 on a scale of 5 with right dorsiflexion, extension, quadriceps and hamstring flexion and 4/5 on the left. Peripheral pulses are 1+ posterior tibial. No peripheral edema is noted bilaterally. Lower extremities are warm and dry to touch, equal in color and appearance. SKIN: Shows warm and dry, good turgor. No edema. No sores, rashes or bruising throughout. Procedure: Procedure: Options discussed with patient. Patient's old chart was reviewed as her current medication regimen updated current view of systems updated today as well. We will proceed with a second lumbar epidural steroid injection today with fluoroscopic guidance. Risks were discussed including but not limited to: Bleeding, infection, possibility of epidural hematoma and subsequent neurological compromise, dural puncture, headaches, spinal cord and/or nerve damage, side effects of steroid medication, and poor results regarding pain control. Patient understands and wished to proceed. Patient will return to clinic in approximate 2 weeks for follow-up, was counseled as to return appointment activity level and side effects to be aware of. Medication Injected: Med Injected: Procedure is lumbar epidural steroid injection under local anesthetic using sterile prep and drape at the L4-5 level using C-arm fluoroscopic guidance in both AP and lateral views medications injected is 120 mg Depo-Medrol +10mL preservative-free normal saline and 2 mL contrast- condition at discharge is stable patient tolerated procedure well had no complications. Condition at Discharge: Condition at Discharge: Condition at discharge is stable, patient already the procedure well and had no complications. DINESH HUTTON MD May 30, 2021 09:35
--- NOTE | 2021-05-30 09:35 | PDOC4 ---
Procedure Note: ICD 10 Code: ICD 10 Code: M5 4.16 M51.36 Procedure Note: Patient was consented for lumbar epidural steroid injection with fluoroscopic guidance. Risks were discussed including but not limited to: Bleeding, infection, possibility of epidural hematoma and subsequent neurological compromise, dural puncture, headaches, spinal cord and/or nerve damage, side effects of steroid medication, and poor results regarding pain control. Patient understands and wished to proceed. Procedure is lumbar epidural steroid injection under local anesthetic using sterile prep and drape at the L4-5 level using C-arm fluoroscopic guidance in both AP and lateral views medications injected is 120 mg Depo-Medrol +10mL preservative-free normal saline and 2 mL contrast- condition at discharge is stable patient tolerated procedure well had no complications. DINESH HUTTON MD May 30, 2021 09:35
== END | disposition home or self-care (01) ==
LOC: PNCL 09:01
PROVIDERS: ATTEND Anesthesiology
DX: M51.16 Intervertebral disc disorders with radiculopathy, lumbar region (principal); M50.10 Cervical disc disorder with radiculopathy, unspecified cervical region; M19.012 Primary osteoarthritis, left shoulder; M19.011 Primary osteoarthritis, right shoulder; Z79.899 Other long term (current) drug therapy; Z91.041 Radiographic dye allergy status
CPT/HCPCS: 62323; J1040; Q9965

== ENCOUNTER → 2021-06-02 | Outpatient (CLI) | payer BC ==
[2015-02-24 15:36] VITALS: BP 183/74
[~2021-06-02] MED LIST changes: -IOHEXOL 180 MG/ML 10 ML VIAL. ONE; -methylPREDNISolone ACETATE 80 MG/ML VIAL. ONE
--- NOTE | 2021-06-02 12:19 | KCIC ---
Bilateral digital screening mammograms with 3-D tomosynthesis: Reason for examination: Routine screening. Comparison is made to previous studies dated back to 02/23/2015. Bilateral mammograms in CC and oblique projections were obtained with 2-D imaging and 3-D tomosynthes is imaging on a [employer] unit and reviewed on the workstation. Interpretation was made with the benefit of CAD. The skin and nipples show no abnormalities. No abnormal axillary lymph nodes are seen. The breast par enchyma is predominantly fatty. (Breast density: Category A.) There are no dominant masses, suspiciou s calcifications or architectural distortion. Impression: No evidence of malignancy. Recommend routine screening. BI-RAD Category 1: Negative. "Our facility is accredited by the [employer] Mammography Program." This patient's information has been entered into a reminder system for the patient to be notified wit h the results of her examination and a target date for the next mammogram. Electronically signed by: Silvia Burgess MD (06/02/2021 12:17 PM) [id number]
== END ==
LOC: KCIC MAMMO 10:08
PROVIDERS: ATTEND Family Medicine
DX: Z12.31 Encounter for screening mammogram for malignant neoplasm of breast (principal)
CPT/HCPCS: 77063; 77067

== ENCOUNTER → 2021-09-04 | Outpatient (CLI) | payer BC ==
[2015-02-24 15:36] VITALS: BP 183/74
[~2021-09-04] MED LIST changes: +IOHEXOL 180 MG/ML 10 ML VIAL. ONE; -LISI1TAB23 PO; +LISI1TAB35 PO; +methylPREDNISolone ACETATE 40 MG/ML VIAL. ONE; +methylPREDNISolone ACETATE 80 MG/ML VIAL. ONE
--- NOTE | 2021-09-04 16:26 | PDOC4 ---
Procedure Note: ICD 10 Code: ICD 10 Code: M54.16 M51.36 Procedure Note: Patient was consented for lumbar epidural steroid injection with fluoroscopic guidance. Risks were discussed including but not limited to: Bleeding, infection, possibility of epidural hematoma and subsequent neurological compromise, dural puncture, headaches, spinal cord and/or nerve damage, side effects of steroid medication, and poor results regarding pain control. Patient understands and wished to proceed. Procedure is lumbar epidural steroid injection under local anesthetic using sterile prep and drape at the L4-5 level using C-arm fluoroscopic guidance in both AP and lateral views medications injected is 120 mg Depo-Medrol +10mL preservative-free normal saline and 2 mL contrast- condition at discharge is stable patient tolerated procedure well had no complications. DINESH HUTTON MD Sep 04, 2021 16:26
--- NOTE | 2021-09-04 16:26 | PDOC ---
Progress Note - Pain Clinic Date of Service: DOS: DATE: 09/04/21 TIME: 16:23 Diagnosis: Dx: Lumbar radiculopathy with lumbar degenerative disc disease cervical radiculopathy with cervical degenerative disease bilateral shoulder joint pain with osteoarthritis History or Present Illness: HPI: 61-year-old female returns for follow-up status post lumbar epidural steroid injection last seen May 30, 2021 patient did very well with about 70% improvement for several weeks following the injection patient reports after few months though the pain began to return and in the low back and the right great left lower extremity posterior gluteus posterior thigh also on the left side and some pain in the mid upper back to patient also has significant pain with the shoulders and is scheduled for rotator cuff repair of the right shoulder coming up next month. Patient reports her main complaint however is pain low back bilateral lower extremities posterior gluteus lateral thigh anterior thigh medial thighs medial lower legs aching sharp in description in the back also tight and shooting the legs tingling the leg stabbing in the back can be constant severe worse with walking standing changing positions initially doing much better with distance walking doing household activities try with greater ease and comfort now as awaken her from sleep about every 6 hours is more difficult with walking standing especially patient reports her pain is a 10 on scale 10 is worse over the past week 8-9 on average and a 8 at its least and is 9 today. Patient reports no bowel or bladder incontinence. Physical Exam: VS: Blood pressure is 148/71 respirations 18 temperature is 98.3 F height is 5 feet 6 inches weight is 353 pounds. PE: PHYSICAL EXAMINATION: GENERAL: The patient is awake, alert, oriented, appropriate, very pleasant in demeanor HEENT: Shows normocephalic, atraumatic. Extraocular movements are intact and symmetrical. Oral cavity: Mucous membranes moist and pink. Dentition is intact. NECK: Shows anterior throat supple without palpable lymphadenopathy noted. Swallow reflex symmetrical. CHEST: Shows normal on inspection. Breath sounds are clear bilaterally, distant but no rales or rhonchi. HEART: Shows S1, S2 clear. No murmurs auscultated. ABDOMEN: Soft, nontender, nondistended, obese. No palpable organomegaly is noted. BACK: Shows spine grossly in the midline. Normal-appearing cervical lordotic curvature. There is increased thoracic kyphosis, and flattening of the lumbar lordotic curvature. Lumbar paraspinous muscles show symmetrical on inspection, on palpation shows some moderate tenderness diffusely throughout the upper, middle and lower distribution of the paraspinous muscles without specific trigger points, without radiation of pain. The patient has good rotational motion of the lumbar spine, both laterally as well as extension and flexion without significant difficulty. EXTREMITIES: Lower extremities show deep tendon reflexes 1+ in the patellar and tendo calcaneus tendons. Motor exam is 4 on a scale of 5 with right dorsiflexion, extension, quadriceps and hamstring flexion and 4/5 on the left. Peripheral pulses are 1+ posterior tibial. No peripheral edema is noted bilaterally. Lower extremities are warm and dry to touch. SKIN: Shows warm and dry, good turgor. No edema. No sores, rashes or bruising throughout. Procedure: Procedure: Options discussed with the patient. Patient chart was reviewed as her current medication regimen updated current review of systems updated today as well. We'll proceed with a lumbar epidural steroid injection today with fluoroscopic guidance. Risks were discussed including but not limited to: Bleeding, infection, possibility of epidural hematoma and subsequent neurological compromise, dural puncture, headaches, spinal cord and/or nerve damage, side effects of steroid medication, and poor results regarding pain control. Patient understands and wished to proceed. Patient return to clinic in approximately 3 weeks for follow-up, was counseled as to return appointment, activity level, and side effects to be aware of. Medication Injected: Med Injected: Procedure is lumbar epidural steroid injection under local anesthetic using sterile prep and drape at the L4-5 level using C-arm fluoroscopic guidance in both AP and lateral views medications injected is 120 mg Depo-Medrol +10mL preservative-free normal saline and 2 mL contrast- condition at discharge is stable patient tolerated procedure well had no complications. Condition at Discharge: Condition at Discharge: Condition at discharge stable, paced tolerated procedure well and had no complications. DINESH HUTTON MD Sep 04, 2021 16:26
== END | disposition home or self-care (01) ==
LOC: PNCL 15:20
PROVIDERS: ATTEND Anesthesiology
DX: M51.16 Intervertebral disc disorders with radiculopathy, lumbar region (principal); M50.10 Cervical disc disorder with radiculopathy, unspecified cervical region; M19.011 Primary osteoarthritis, right shoulder; M19.012 Primary osteoarthritis, left shoulder; Z79.84 Long term (current) use of oral hypoglycemic drugs; Z79.899 Other long term (current) drug therapy; Z91.041 Radiographic dye allergy status
CPT/HCPCS: 62323; J1030; J1040; Q9965

== ENCOUNTER → 2021-09-21 | Outpatient (CLI) | payer BC ==
[2015-02-24 15:36] VITALS: BP 183/74
[~2021-09-21] MED LIST changes: -IOHEXOL 180 MG/ML 10 ML VIAL. ONE; -methylPREDNISolone ACETATE 40 MG/ML VIAL. ONE; -methylPREDNISolone ACETATE 80 MG/ML VIAL. ONE
--- NOTE | 2021-09-21 17:53 | KCIC ---
Study: XR SHOULDER_LEFT 2+ VIEWS Indication: Glenohumeral arthritis. History of a fall 7 months prior. Comparison: 03/29/2021 Findings: No acute or healing fracture. Moderate glenohumeral and acromioclavicular joint arthrosis. Normal acr omiohumeral interval. Spurring at the coracoclavicular interval. The partially assessed left-sided ri bs are grossly intact. Aortic calcific atherosclerosis. Impression: No acute or subacute fracture. Alignment is within normal limits. Moderate arthrosis without change f rom 03/29/2021. Electronically signed by: CALIN HEATH MD (09/21/2021 5:50 PM) [id number]
--- NOTE | 2021-09-21 17:55 | KCIC ---
Study: XR KNEE 4 VIEWS WITH PATELLA_RT Indication: Right knee pain. History of a fall 7 months prior. Comparison: None recently. Findings: Tricompartmental osteoarthrosis with osteophytic proliferation greatest at the patellofemoral compart ment. Joint space height loss with potential [id number] at the lateral aspect of the patellofemoral interface. Chronic ossific fragments adjacent to the patella, mainly laterally. Mild/moderate medial compartment joint space narrowing. Mild joint space narrowing laterally. Favored bone island at the medial tibial metaphysis. Patellar enthesophytes. No large joint effusion is apparent noting obliquity on the lateral view. Impression: 1. No acute or subacute fracture. 2. Advanced tricompartmental osteoarthrosis with greatest involvement of the patellofemoral more so t lino medial femorotibial compartments, as above. Electronically signed by: CALIN HEATH MD (09/21/2021 5:53 PM) [id number]
== END ==
LOC: KCIC 12:44
PROVIDERS: ATTEND Family Medicine
DX: M19.012 Primary osteoarthritis, left shoulder (principal); M17.11 Unilateral primary osteoarthritis, right knee; I70.0 Atherosclerosis of aorta; M75.82 Other shoulder lesions, left shoulder; M25.861 Other specified joint disorders, right knee
CPT/HCPCS: 73030; 73564

== ENCOUNTER → 2021-10-04 | Outpatient (CLI) | payer BC ==
[2015-02-24 15:36] VITALS: BP 183/74
[~2021-10-04] MED LIST changes: +IOHEXOL 180 MG/ML 10 ML VIAL. ONE; +methylPREDNISolone ACETATE 40 MG/ML VIAL. ONE; +methylPREDNISolone ACETATE 80 MG/ML VIAL. ONE
--- NOTE | 2021-10-04 16:35 | PDOC ---
Progress Note - Pain Clinic Date of Service: DOS: DATE: 10/04/21 TIME: 16:29 Diagnosis: Dx: Lumbar radiculopathy with lumbar degenerative disc disease Cervical radiculopathy with cervical degenerative disc disease Bilateral shoulder joint pain with osteoarthritis Arthritis bilateral hands History or Present Illness: HPI: 61-year-old female returns for follow-up last seen October 2020 with a lumbar epidural steroid injection patient did very well with approximately 45% improvement with pain returning in the low back and right greater than left lower extremity. Patient reports also new pain of bilateral hand stiffness and enlarging knuckles on the distal phalanges, patient reports she has a history of rheumatoid arthritis in her family also right shoulder becoming much more painful and difficult with motion and movement as well. Patient reports she does not have an orthopedic surgeon currently evaluating these issues as well. Patient rates her pain in her low back and legs as a seven on scale 10 is worst average and a six at its least is a six today patient report is aching tingling on and off in intensity with cramping in the legs as well. Patient reports a loss of motor function with significant fatigability of the lower extremity specially on the right side with walking and standing described as aching tingling in the legs cramping once again on and off in intensity. Patient's right shoulder shows significant stinging burning pain with weightbearing lifting rotation and the hands with any repetitive motions and gripping which is becoming more difficult especially with the right hand. Physical Exam: VS: Blood pressure is 142/98 pulse 87 respirations 18 temperature 98.7 F height 5 ft 6 in weight 341 lbs PE: PHYSICAL EXAMINATION: GENERAL: The patient is awake, alert, oriented, appropriate, very pleasant in demeanor HEENT: Shows normocephalic, atraumatic. Extraocular movements are intact and symmetrical. Oral cavity: Mucous membranes moist and pink. Dentition is inta ct. NECK: Shows anterior throat supple without palpable lymphadenopathy noted. Swallow reflex symmetrical. CHEST: Shows normal on inspection. Breath sounds are clear bilaterally, distant but no rales or rhonchi auscultated. HEART: Shows S1, S2 clear. No murmurs auscultated. ABDOMEN: Soft, nontender, nondistended. No palpable organomegaly is noted. No rebound or guarding demonstrated. BACK: Shows spine grossly in the midline. Normal-appearing cervical lordotic curvature. There is increased thoracic kyphosis, some flattening of the lumbar lordotic curvature. Lumbar paraspinous muscles show symmetrical on inspection, on palpation shows some moderate tenderness diffusely throughout the upper, middle and lower distribution of the paraspinous muscles without specific trigger points, without radiation of pain. The patient has good rotational motion of the lumbar spine, both laterally as well as extension and flexion without significant difficulty. EXTREMITIES: Lower extremities show deep tendon reflexes 1+ in the patellar and tendo calcaneus tendons. Motor exam is four on a scale of 5 with right dorsiflexion, extension, quadriceps and hamstring flexion and four/5 on the left. Peripheral pulses are 1+ posterior tibial. No peripheral edema is noted bilaterally. Lower extremities are warm and dry to touch, equal in color and appearance. Upper extremity show deep tendon reflexes 2+ in the bicep tricep tendons, motor exam is strong with licensed practical vocational nurse strength approximately 3-4 scale five on the right and 4-5 on the left right shoulder shows significant tenderness with rotation externally and as well as abduction greater than 45 with tenderness in the lateral and anterior aspect of the deltoid. Left side is nontender with rotation and abduction. SKIN: Shows warm and dry, good turgor. No edema. No sores, rashes or bruising throughout. Procedure: Procedure: Options were discussed with the patient. Patient's old chart was reviewed as her current medication regimen updated current review of systems updated today as well. We'll proceed with a lumbar epidural steroid injection today with fluoroscopic guidance. Risks were discussed including but not limited to: Bleeding, infection, possibility of epidural hematoma and subsequent neurologi alexsandra compromise, dural puncture, headaches, spinal cord and/or nerve damage, side effects of steroid medication, and poor results regarding pain control. Patient understands and wished to proceed. Patient will return to clinic in approximately 2 weeks for follow-up, was counseled as return appointment, activity level, and side effect to be aware of. Regarding patient's right shoulder and hands will make referral for orthopedic surgeon for evaluation right shoulder, also to pbx installer for evaluation of patient's arthritic hand conditions and further testing as necessary. Medication Injected: Med Injected: Procedure is lumbar epidural steroid injection under local anesthetic using sterile prep and drape at the L4-5 level using C-arm fluoroscopic guidance in both AP and lateral views medications injected is 120 mg Depo-Medrol +10mL preservative-free normal saline and 2 mL contrast- condition at discharge is stable patient tolerated procedure well had no complications. Condition at Discharge: Condition at Discharge: Condition at discharge stable, patient tolerated the procedure well and had no complications. DINESH HUTTON MD Oct 04, 2021 16:35
== END | disposition home or self-care (01) ==
LOC: PNCL 13:45
PROVIDERS: ATTEND Anesthesiology
DX: M51.16 Intervertebral disc disorders with radiculopathy, lumbar region (principal); M50.10 Cervical disc disorder with radiculopathy, unspecified cervical region; M19.011 Primary osteoarthritis, right shoulder; M19.012 Primary osteoarthritis, left shoulder; M19.042 Primary osteoarthritis, left hand; M19.041 Primary osteoarthritis, right hand; Z79.84 Long term (current) use of oral hypoglycemic drugs; Z79.899 Other long term (current) drug therapy; Z91.041 Radiographic dye allergy status
CPT/HCPCS: 62323; J1030; J1040; Q9965

== ENCOUNTER → 2021-12-06 | Outpatient (CLI) | payer BC ==
[2015-02-24 15:36] VITALS: BP 183/74
[~2021-12-06] MED LIST changes: +ALPR0.5T6 PO; +DEXAMETHASONE PRES.FREE 10 MG/ML VIAL. ONE; +HYDR200T5 PO; -methylPREDNISolone ACETATE 40 MG/ML VIAL. ONE; -methylPREDNISolone ACETATE 80 MG/ML VIAL. ONE
--- NOTE | 2021-12-06 17:35 | PDOC4 ---
Procedure Note: ICD 10 Code: ICD 10 Code: M54.16 M51.36 Procedure Note: Patient was consented for lumbar epidural steroid injection with fluoroscopic guidance. Risks were discussed including but not limited to: Bleeding, infection, possibility of epidural hematoma and subsequent neurological compromise, dural puncture, headaches, spinal cord and/or nerve damage, side effects of steroid medication, and poor results regarding pain control. Patient understands and wished to proceed. Procedure is lumbar epidural steroid injection under local anesthetic using sterile prep and drape at the L5-S1 level using C-arm fluoroscopic guidance in both AP and lateral views medications injected is 20 mg dexamethasone +10mL preservative-free normal saline and 2 mL contrast- condition at discharge is stable patient tolerated procedure well had no complications. DINESH HUTTON MD Dec 06, 2021 17:35
--- NOTE | 2021-12-06 17:35 | PDOC ---
Progress Note - Pain Clinic Date of Service: DOS: DATE: 12/06/21 TIME: 17:28 Diagnosis: Dx: Lumbar radiculopathy with lumbar degenerative disc disease Cervical radiculopathy with cervical degenerative disease Bilateral shoulder joint pain with osteoarthritis Right knee joint pain with osteoarthritis History or Present Illness: HPI: 61-year-old female returns complaining of low back and bilateral lower extremity pain. Patient reports she has done very well in the past with about 50% improvement with the lumbar epidural steroid injections most recently October 04, 2021. Patient also has some significant pain in the bilateral shoulders, but is better with anti-inflammatories naproxen and hydrocodone. Patient reports her low back and bilateral lower extremity pain is her chief complaint today reports no bowel or bladder incontinence but feelings of urgency with both when the pain is at its worst patient rates as an 8 on scale 10 is worse over the past week 8 on average 8 its least is an 8 today patient reports is aching sharp tight shooting cramping in the legs stabbing in the back tingling in the legs as well as the groin also radiating constant can be severe with walking standing worse with standing walking better with sitting or laying down initially she was doing much better with all activities distance walking doing household activities try with greater ease and comfort as well as sleeping better is now waking her from sleep about once a night battery 5 hours or so. Patient reports no bowel or bladder incontinence. Patient reports having some significant anxiety and difficulty sleeping we discussed the situation further and will prescribe new medication prescription for alprazolam 0.5 mg nightly, with instructions and side effects beware of discussed with the medication. Physical Exam: VS: Blood pressure is 143/87 pulse 74 respirations are 18 temperature is 98.2 F weight is 345 pounds. PE: PHYSICAL EXAMINATION: GENERAL: The patient is awake, alert, oriented, appropriate, very pleasant in demeanor HEENT: Shows normocephalic, atraumatic. Extraocular movements are intact and symmetrical. Oral cavity: Mucous membranes moist and pink. Dentition is intact. NECK: Shows anterior throat supple without palpable lymphadenopathy noted. Swallow reflex symmetrical. CHEST: Shows normal on inspection. Breath sounds are clear bilaterally, distant but no rales rhonchi or wheezes auscultated. HEART: Shows S1, S2 clear. No murmurs auscultated. ABDOMEN: Soft, nontender, nondistended, obese. No palpable organomegaly is noted. BACK: Shows spine grossly in the midline. Normal-appearing cervical lordotic curvature. There is moderately increased thoracic kyphosis, some flattening of the lumbar lordotic curvature. Lumbar paraspinous muscles show symmetrical on inspection, on palpation shows some moderate tenderness diffusely throughout the upper, middle and lower distribution of the paraspinous muscles, but without specific trigger points, without radiation of pain. The patient has good rotational motion of the lumbar spine, both laterally as well as extension and flexion without significant difficulty. No tenderness over the spinous processes, sacrum or sacroiliac regions. EXTREMITIES: Lower extremities show deep tendon reflexes 1+ in the patellar and tendo calcaneus tendons. Motor exam is 4 on a scale of 5 with right dorsiflexion, extension, quadriceps and hamstring flexion and 4/5 on the left. Peripheral pulses are 1+ posterior tibial. No peripheral edema is noted bilaterally. Lower extremities are warm and dry. SKIN: Shows warm and dry, good turgor. No edema. No sores, rashes or bruising throughout. Procedure: Procedure: Options were discussed with the patient. Patient's old chart was reviewed his medication regimen updated current review of systems updated today as well. We will proceed with a lumbar epidural steroid injection today with fluoroscopic guidance. Risks were discussed including but not limited to: Bleeding, infection, possibility of epidural hematoma and subsequent neurological compromise, dural puncture, headaches, spinal cord and/or nerve damage, side effects of steroid medication, and poor results regarding pain control. Patient understands and wished to proceed. Patient will return to clinic in approximate 2 weeks for follow-up, was counseled as to return appointment, activity level, and side effect to be aware of. Medication Injected: Med Injected: Procedure is lumbar epidural steroid injection under local anesthetic using sterile prep and drape at the L4-5 level using C-arm fluoroscopic guidance in both AP and lateral views medications injected is 20 mg dexamethasone +10mL preservative-free normal saline and 2 mL contrast- condition at discharge is stable patient tolerated procedure well had no complications. Condition at Discharge: Condition at Discharge: Condition at discharge is stable, noted that on initial attempt of lumbar epidural steroid injection positive CSF was noted approximately 1 to 2 cc, needle was withdrawn and redirected under direct visualization with good preservative-free [id number] once again and no aspiration with good epidurogram with 2 cc contrast. Medication was then injected after repositioning of the epidural needle. DINESH HUTTON MD Dec 06, 2021 17:35
--- NOTE | 2021-12-08 07:48 | FMN ---
PT PROBLEMS End of for visit of December 06, 2021 Alprazolam as new medication prescribed for both anxiety and insomnia. DINESH HUTTON MD Dec 08, 2021 07:48
== END | disposition home or self-care (01) ==
LOC: PNCL 15:26
PROVIDERS: ATTEND Anesthesiology
DX: M51.16 Intervertebral disc disorders with radiculopathy, lumbar region (principal); M50.10 Cervical disc disorder with radiculopathy, unspecified cervical region; M19.012 Primary osteoarthritis, left shoulder; M19.011 Primary osteoarthritis, right shoulder; M17.11 Unilateral primary osteoarthritis, right knee; Z79.899 Other long term (current) drug therapy; Z91.041 Radiographic dye allergy status
CPT/HCPCS: 62323; J1100; Q9965